=== PATIENT | male | born 1965 | race Hispanic/Latino ===

== ENCOUNTER 2020-01-26 11:31 | Outpatient (CLI) | payer OTHER ==
--- NOTE | 2020-01-26 12:39 | RAD ---
RADIOGRAPH CHEST 2 VIEWS: DATE: 01/26/2020 HISTORY: 54-year-old male with cough FINDINGS: There is no airspace density, pulmonary edema, pleural effusion, pneumothorax, or cardiomegaly. IMPRESSION: No acute cardiopulmonary findings.
== END 2020-01-26 11:32 | disposition home or self-care (01) ==
LOC: BICRAD 11:31
PROVIDERS: ATTEND Family Medicine
DX: R05 Cough (principal)
CPT/HCPCS: 71046

== ENCOUNTER 2020-09-17 17:44 | Emergency (ER) | payer SELFPAY ==
[2020-09-17 18:19] LABS: Hemoglobin 15.7 g/dL (14.0-18.0); Mean Corpuscular HGB CONC 35.8 g/dL (32.0-36.0); Mean Corpuscular Hemoglobin 34.4 pg (27.0-31.0); Mean Corpuscular Volume 96.2 fL (78.0-98.0); Mean Platelet Volume 8.4 fL (7.4-10.4); Platelet Count 183 thou/uL (130-400); RBC Distribution Width 11.1 % (11.5-14.5); Red Blood Cell (RBC) Count 4.55 mill/uL (4.70-6.10); White Blood Cell (WBC) Count 4.9 thou/uL (4.8-10.8)
--- NOTE | 2020-09-17 18:22 | RAD ---
PORTABLE CHEST: 09/17/20 HISTORY: Fall from a ladder. Diffuse pain. Heart size and mediastinum are within normal limits. The lungs are clear of any infiltrates. No rib f ractures are seen. IMPRESSION: No active intrathoracic disease. POS: [facility]
--- NOTE | 2020-09-17 18:26 | CT ---
CT OF CHEST PERFORMED WITHOUT CONTRAST ENHANCEMENT: 09/17/20 HISTORY: Fall from a ladder with neck pain. The cervical vertebral bodies are normal in height. Disc spaces are well preserved and facets are in normal alignment. No canal or foraminal stenosis. There is some minimal loss of vertebral body height of the superior end plate of T2. This could represent an acute injury. Fracture line is not seen. IMPRESSION: 1. No CT evidence of fracture of the cervical spine. 2. Some minimal compression changes of the superior end plate of T2 age indeterminate. Possibly acute. Clinical correlation as to patient's pain. No bony retropulsion. Findings telephoned to Dr. Michaels at 1819 hours. POS: [facility] [place]
--- NOTE | 2020-09-17 18:32 | CT ---
HEAD CT WITHOUT CONTRAST: 09/17/20 HISTORY: Status post fall. Level II trauma. Pain. FINDINGS: No parenchymal hemorrhage. No extra-axial hematoma. No midline shift. Basilar cisterns are patent. Brain volume is age appropriate. Cortical wei-white m atter differentiation is preserved. No hydrocephalus. Extensive facial and frontal scalp hematoma/swelling. Adequate aeration of the mastoid air cells. Partial opacification of the right maxillary sinus and ri ght ethmoid air cells. There does appear to be a right lamina papyracea fracture. Calvarium is intact . IMPRESSION: 1. Posttraumatic changes involving the facial and scalp soft tissues. 2. Right lamina papyracea fracture. 3. No intracranial posttraumatic sequela. Results of the study conveyed to Dr. Michaels, 09/17/20 at 6:24 p.m. Code CR POS: [facility]
--- NOTE | 2020-09-17 18:37 | CT ---
CT OF FACIAL BONES PERFORMED WITHOUT CONTRAST ENHANCEMENT: 09/17/20 HISTORY: Fall from a ladder. Facial trauma. There is more right sided frontal and periorbital hematoma present. There is a medial wall right orbi luis fracture associated with this and a minimally depressed floor fracture without evidence of any mu scle entrapment. There is some subtle lucency involving the posterior wall of the right maxilla which could represent a subtle nondisplaced fracture. Zygomatic arches are intact. Nasal bone appears inta ct. No mandibular fracture. Condyles are in normal position. IMPRESSION: Air fluid level within the right maxillary sinus. This is associated with a minimally depressed right orbital floor fracture and medial wall right orbit fracture. There also may be a subtle nondisplaced fracture involving the posterior wall of the right maxilla. These findings were telephoned to Dr. Michaels at 1828 hours. POS: [facility]
--- NOTE | 2020-09-17 18:41 | CT ---
CHEST CT WITH CONTRAST: 09/17/20 HISTORY: Level II trauma. Fall. Pain. FINDINGS: LOWER NECK AND AXILLA: No posttraumatic change. MEDIASTINUM: No retroperitoneal mass or hematoma. Heart size is normal. No significant pericardial fluid. The thoracic and abdominal aorta have a heri l caliber. No periaortic fat stranding. Normal heart size. Minimal calcifications of the coronary arteries. No significant pericardial fluid. Portal vein is patent. No posttraumatic changes in the visualized upper abdomen. Trachea and central bronchi are patent. Dependent atelectatic changes. No mass, consolidation, or contusion. No pleural effusion. No pneumothorax. Sternum is intact. Clavicles and scapula are intact. Fractures involving the right 6th, 7th ribs. No evidence of a left rib fracture. THORACIC SPINE CT: Vertebral body heights appear to be maintained from T4 through T12. There is mild loss of vertebral b arminda height at T2 and T3. No significant retropulsion. Findings are age indeterminate. Correlate for p oint tenderness. IMPRESSION: 1. Age indeterminate T2 and T3 compression fractures. 2. Fracture involving the right ribs as described above. No associated pneumothorax. Results of the study conveyed to Dr. Michaels 09/17/20 at 6:31 p.m. Code CR. POS: [facility]
[2020-09-17 18:59] LABS: Albumin 4.1 g/dL (3.5-5.0)
[2020-09-17 19:00] LABS: Band 2 % (5-11); Eosinophils 5 % (0-10); Lymphocytes 37 % (21-51); MDiff Complete? YES; Monocytes 5 % (0-10); Neutrophil 28 % (42-75); Platelet Morphology Comment Appears Adequate; RBC Morphology Normal; Reactive Lymphocytes 21 % (0-10)
[2020-09-17 19:01] LABS: Calcium 8.7 mg/dL (7.8-10.44); Chloride 103 mmol/L (98-107); Potassium 4.7 mmol/L (3.5-5.1); Sodium 136 mmol/L (136-145)
[2020-09-17 19:02] LABS: Globulin 3.4 g/dL (2.4-3.5); Glucose 382 mg/dL (70-105); Protein, Total 7.5 g/dL (6.0-8.3)
[2020-09-17 19:03] LABS: Anion Gap 21 mmol/L (10-20); Carbon Dioxide 17 mmol/L (22-29)
[2020-09-17 19:04] LABS: Bilirubin, Total 0.4 mg/dL (0.2-1.2)
[2020-09-17 19:05] LABS: Alkaline Phosphatase 89 U/L (40-110); Calc. Creatinine Clearance 0 mL/min (70-130)
[2020-09-17 19:06] LABS: BUN (Urea Nitrogen) 11 mg/dL (8.4-25.7)
[2020-09-17 19:07] LABS: AST (SGOT) 578 U/L (5-34)
[2020-09-17 19:08] LABS: ALT (SGPT) 269 U/L (8-55); CK (CPK) 131 U/L (30-200)
--- NOTE | 2020-09-24 10:05 | EKG ---
Test Reason : Blood Pressure : / mmHG Vent. Rate : 102 BPM Atrial Rate : 102 BPM P-R Int : 178 ms QRS Dur : 086 ms QT Int : 368 ms P-R-T Axes : 038 025 001 degrees QTc Int : 479 ms Sinus tachycardia Possible Inferior infarct , age undetermined Cannot rule out Anterior infarct , age undetermined Abnormal ECG Confirmed by EMILY PRINGLE, MAE Subramanian ([id number]), web editor HEMA REYNA ([id number]) on 09/24/2020 10:05:45 AM Referred By: Confirmed By:MAE DIAZ MD
== END 2020-09-17 19:20 | disposition home or self-care (01) ==
LOC: ERS 17:44
DX: S02.31XA Fracture of orbital floor, right side, initial encounter for closed fracture (principal); S02.831A Fracture of medial orbital wall, right side, initial encounter for closed fracture; R07.9 Chest pain, unspecified; R51.9 Headache, unspecified; W11.XXXA Fall on and from ladder, initial encounter
CPT/HCPCS: 70450; 70486; 71045; 71260; 72125; 80053; 82550; 85025; 93005